=== PATIENT | male | born 1955 ===

== ENCOUNTER → 2023-11-24 | Outpatient (CLI) | payer MEDICARE, OTHER ==
[~2023-11-24] MED LIST: CEPHALEXIN500 M1 PO; LORTAB 5/500 501 TAB PO; [UNRECOGNIZED DRUG - REMARK]
== END ==
LOC: COL.RAD 08:32
DX: S12.110D Anterior displaced Type II dens fracture, subsequent encounter for fracture with routine healing (principal); S12.130D Unspecified traumatic displaced spondylolisthesis of second cervical vertebra, subsequent encounter for fracture with routine healing; X58.XXXD Exposure to other specified factors, subsequent encounter